=== PATIENT | male | born 1935 | race Caucasian/White ===

== ENCOUNTER → 2021-02-26 | Outpatient (CLI) | payer MEDICARE | END | disposition home or self-care (01) | LOC: CFH 13:42 | PROVIDERS: ATTEND Internal Medicine Cardiovascular Disease | DX: I08.3 Combined rheumatic disorders of mitral, aortic and tricuspid valves (principal); R07.9 Chest pain, unspecified; R06.02 Shortness of breath | CPT/HCPCS: 93306; 93356 ==

== ENCOUNTER 2021-03-14 14:09 | Observation (INO) | payer MEDICARE ==
[~2021-03-14] VITALS: Ht 177.8 cm; Wt 106.0 kg
[2021-03-14 15:03] LABS: BASOPHILS % (AUTO) 1 % (0-1); EOSINOPHILS % (AUTO) 16 % (1-7); LYMPHOCYTES % (AUTO) 22 % (22-44); MEAN CORPUSCULAR HEMOGLOBIN 31.7 pg (27.5-34.5); MEAN CORPUSCULAR HGB CONC 34.1 g/dL (33.2-36.2); MEAN PLATELET VOLUME 7.9 fL (7.4-10.4); MONOCYTES % (AUTO) 11 % (2-9); NEUTROPHILS % (AUTO) 50 % (42-75); PLATELET COUNT 282 x10^3/uL (130-400); RED BLOOD COUNT 4.44 x10^6/uL (4.38-5.82); RED CELL DISTRIBUTION WIDTH 15.3 % (9.4-14.8)
--- NOTE | 2021-03-14 15:04 | NUR ---
PIV PLACED, LABS DRAWN AND COLLECTED BY SCARIFIER OPERATOR. PT CONNECTED TO MONITORING. FALL PRECAUTIONS IN PLACE. CALL LIGHT IN REACH. AT BEDSIDE.
[2021-03-14 15:12] LABS: INTERNATIONAL NORMALIZED RATIO 1.93 (0.93-1.1)
[2021-03-14 15:14] LABS: ALANINE AMINOTRANSFERASE 18 U/L (12-78); ANION GAP 4 mmol/L (5-15); CALCIUM 9.1 mg/dL (8.5-10.1); CHLORIDE 105 mmol/L (98-107)
[2021-03-14 15:16] LABS: ALKALINE PHOSPHATASE 95 U/L (45-117); BILIRUBIN,TOTAL 0.6 mg/dL (0.2-1.0); TOTAL PROTEIN 7.6 g/dL (6.4-8.2)
[2021-03-14] MEDS ORDERED: ASPIRIN 81 MG TABLET CHEW PO ONE (15:30)
[2021-03-14 15:44] LABS: MICROSCOPIC NOT IND
[2021-03-14] MEDS ORDERED: ASPIRIN 81 MG TABLET CHEW ONE (15:53)
--- NOTE | 2021-03-14 16:16 | NUR ---
ART TO CONSULT NEURO
--- NOTE | 2021-03-14 16:30 | NUR ---
REPORT GIVEN TO SHARON SIBLEY. TRANSFER OF CARE.
--- NOTE | 2021-03-14 16:35 | NUR ---
RECEIVED REPORT FROM MARYJO LARA. PT RESTING ON MICKEYANAI. NADN. SHER.
--- NOTE | 2021-03-14 17:21 | NUR ---
TASK RN: REPORT TO MARYJO PARHAM ON FLOOR. PT PREPARED FOR TRANSPORT.
[2021-03-14] MEDS ORDERED: OXYcodone/APAP 5/325MG TABLET PO PRN (18:30)
[2021-03-14] MEDS ORDERED: ONDANSETRON 2MG/ML, 2ML IVPush PRN (18:30)
[2021-03-14] MEDS ORDERED: ACETAMINOPHEN 325 MG TABLET PO PRN (18:30)
[2021-03-14] MEDS ORDERED: WARFARIN 5 MG TABLET PO-COUM ONE (19:00)
[2021-03-14 19:49] VITALS: BP 125/71
[2021-03-14 20:00] VITALS: BP 124/74
[2021-03-14] MEDS: SODIUM CHLORIDE 0.9% 1,000 ML IV SCH (21:05)
[2021-03-14 22:00] VITALS: BP 98/52
[2021-03-14 22:10] VITALS: BP 151/76
[2021-03-15] VITALS: BP 103/67
[2021-03-15 02:00] VITALS: BP 97/59
[2021-03-15 04:00] VITALS: BP 128/50
[2021-03-15 06:00] VITALS: BP 134/75
[2021-03-15 06:00] LABS: BASOPHILS % (AUTO) 1 % (0-1); EOSINOPHILS % (AUTO) 18 % (1-7); LYMPHOCYTES % (AUTO) 37 % (22-44); MEAN CORPUSCULAR HGB CONC 34.4 g/dL (33.2-36.2); MEAN PLATELET VOLUME 7.9 fL (7.4-10.4); MONOCYTES % (AUTO) 11 % (2-9); NEUTROPHILS % (AUTO) 33 % (42-75); PLATELET COUNT 237 x10^3/uL (130-400); RED BLOOD COUNT 4.18 x10^6/uL (4.38-5.82); RED CELL DISTRIBUTION WIDTH 15.2 % (9.4-14.8)
[2021-03-15 06:07] LABS: INTERNATIONAL NORMALIZED RATIO 2.23 (0.93-1.1)
[2021-03-15 06:20] LABS: ANION GAP 3 mmol/L (5-15); CALCIUM 8.5 mg/dL (8.5-10.1); CHLORIDE 111 mmol/L (98-107); CHOLESTEROL, TOTAL 159 mg/dL (140-239); CREATININE 0.77 mg/dL (0.7-1.3); TRIGLYCERIDES 103 mg/dL (50-200); VLDL CHOLESTEROL 21 mg/dL (0-25)
[2021-03-15 06:25] LABS: MICROSCOPIC NOT IND
[2021-03-15 06:30] LABS: CHOL/HDL RATIO 4.4; HDL CHOL % 23 % (26-37); HDL CHOLESTEROL (DIRECT) 36 mg/dL (40-60); LDL CHOLESTEROL,CALCULATED 102 mg/dL (54-169); LDL/HDL RATIO 2.8 (0.5-3.0)
[2021-03-15 07:21] VITALS: BP 130/74
[2021-03-15] MEDS ORDERED: MECL-101 PO (08:47)
[2021-03-15] MEDS ORDERED: L.AC1CAP6 PO (08:47)
[2021-03-15] MEDS ORDERED: ASPI81TA45 PO (08:47)
[2021-03-15] MEDS ORDERED: WARF3TAB52 PO ×2 (08:47)
[2021-03-15] MEDS ORDERED: SOTA80TA19 PO (08:47)
[2021-03-15] MEDS ORDERED: TAMS-11 PO (08:47)
[2021-03-15] MEDS ORDERED: NITR0.4T28 SL (08:47)
[2021-03-15] MEDS ORDERED: OXYC5TAB98 PO (08:48)
[2021-03-15] MEDS ORDERED: PANT40TA6 PO (08:48)
[2021-03-15] MEDS ORDERED: MULT-658 PO (08:48)
[2021-03-15] MEDS ORDERED: METF500T17 PO (08:48)
[2021-03-15] MEDS ORDERED: SENNA/DOCUSATE TABLET PO SCH (09:00)
[2021-03-15] MEDS ORDERED: SOTALOL 80MG TABLET PO SCH (09:30)
[2021-03-15] MEDS ORDERED: OXYcodone IR 5MG TABLET PO PRN (09:30)
[2021-03-15] MEDS ORDERED: VIT1CAPS42 PO (10:58)
[2021-03-15] MEDS ORDERED: VALPROIC ACID 250 MG CAPSULE PO SCH (13:30)
[2021-03-15] MEDS ORDERED: VALP250C59 PO (14:15)
[2021-03-15 14:26] VITALS: BP 112/70
[2021-03-15] MEDS: SODIUM CHLORIDE 0.9% 1,000 ML IV SCH (14:30)
[2021-03-15] MEDS ORDERED: WARFARIN 3 MG TABLET PO-COUM ONE (18:00)
[2021-03-15] MEDS ORDERED: WARFARIN 1 MG TABLET PO-COUM ONE (18:00)
[2021-03-15] MEDS ORDERED: MECLIZINE 25 MG TABLET PO SCH (21:00)
[2021-03-16] MEDS ORDERED: PANTOPRAZOLE 40MG TABLET PO SCH (06:00)
== END 2021-03-15 16:32 | disposition home or self-care (01) ==
LOC: ED 16:57 → INTOOBSV 17:14 → EDIP 17:14 → 4EST 18:04
PROVIDERS: ADMIT Hospitalist; ATTEND Internal Medicine
DX: R47.1 Dysarthria and anarthria (principal); I65.29 Occlusion and stenosis of unspecified carotid artery; I10 Essential (primary) hypertension; E11.9 Type 2 diabetes mellitus without complications; I25.10 Atherosclerotic heart disease of native coronary artery without angina pectoris; I48.91 Unspecified atrial fibrillation; F43.9 Reaction to severe stress, unspecified; Z79.84 Long term (current) use of oral hypoglycemic drugs; Z79.82 Long term (current) use of aspirin; Z79.899 Other long term (current) drug therapy; Z95.0 Presence of cardiac pacemaker; Z79.01 Long term (current) use of anticoagulants; Z86.73 Personal history of transient ischemic attack (TIA), and cerebral infarction without residual deficits; Z88.0 Allergy status to penicillin
CPT/HCPCS: 36415; 70450; 70496; 70498; 80048; 80053; 80061; 81003; 83036; 84443; 85025; 85610; 93005; 95819; 96360; 96361; 97161; 97165; 99285; G0378; J7030

== ENCOUNTER 2021-04-26 12:54 | Emergency (ER) | payer MEDICARE ==
[~2021-04-26] VITALS: Ht 177.8 cm; Wt 95.0 kg
[~2021-04-26 12:54] MED LIST: ASPI81TA45 PO; L.AC1CAP6 PO; MECL-101 PO; METF500T17 PO; MULT-658 PO; NITR0.4T28 SL; OXYC5TAB98 PO; PANT40TA6 PO; SOTA80TA19 PO; TAMS-11 PO; VALP250C59 PO; VIT1CAPS42 PO; WARF3TAB52 PO
[2021-04-26 13:39] LABS: BASOPHILS % (AUTO) 1 % (0-1); EOSINOPHILS % (AUTO) 8 % (1-7); LYMPHOCYTES % (AUTO) 20 % (22-44); MEAN CORPUSCULAR HEMOGLOBIN 32.2 pg (27.5-34.5); MEAN PLATELET VOLUME 7.9 fL (7.4-10.4); MONOCYTES % (AUTO) 15 % (2-9); NEUTROPHILS % (AUTO) 58 % (42-75); PLATELET COUNT 202 x10^3/uL (130-400); RED BLOOD COUNT 4.41 x10^6/uL (4.38-5.82)
[2021-04-26 13:52] LABS: ALBUMIN 2.6 g/dL (3.4-5.0); ANION GAP 6 mmol/L (5-15); CALCIUM 8.7 mg/dL (8.5-10.1); CHLORIDE 107 mmol/L (98-107)
[2021-04-26 13:55] LABS: ALANINE AMINOTRANSFERASE 23 U/L (12-78); ALKALINE PHOSPHATASE 112 U/L (45-117); BILIRUBIN,TOTAL 0.7 mg/dL (0.2-1.0); CREATININE 0.88 mg/dL (0.7-1.3); TOTAL PROTEIN 7.7 g/dL (6.4-8.2)
--- NOTE | 2021-04-26 17:19 | NUR ---
pATIENT TO ROOM FROM LOBBY
[2021-04-26 18:30] VITALS: BP 107/51
== END 2021-04-26 18:59 | disposition home or self-care (01) ==
LOC: ED 18:50
DX: R56.9 Unspecified convulsions (principal); E11.9 Type 2 diabetes mellitus without complications; I25.10 Atherosclerotic heart disease of native coronary artery without angina pectoris; I10 Essential (primary) hypertension
CPT/HCPCS: 36415; 80053; 85025; 93005; 99284; 80203

== ENCOUNTER 2021-05-01 09:33 | Inpatient (IN) | payer MEDICARE ==
[~2021-05-01] VITALS: Ht 179.1 cm; Wt 100.6 kg
--- NOTE | 2021-05-01 13:20 | NUR ---
bleacher lard note: Pt to room from lobby.
[2021-05-01 13:38] LABS: BASOPHILS % (AUTO) 1 % (0-1); EOSINOPHILS % (AUTO) 9 % (1-7); LYMPHOCYTES % (AUTO) 33 % (22-44); MEAN CORPUSCULAR HEMOGLOBIN 31.9 pg (27.5-34.5); MEAN PLATELET VOLUME 8.1 fL (7.4-10.4); MONOCYTES % (AUTO) 18 % (2-9); NEUTROPHILS % (AUTO) 39 % (42-75); PLATELET COUNT 253 x10^3/uL (130-400); RED CELL DISTRIBUTION WIDTH 14.9 % (9.4-14.8)
[2021-05-01] MEDS ORDERED: OMNIPAQUE 350 MG/ML, 100ML BOTTLE ONE (13:50)
[2021-05-01 13:54] LABS: ALANINE AMINOTRANSFERASE 22 U/L (12-78); ALBUMIN 2.6 g/dL (3.4-5.0); ANION GAP 7 mmol/L (5-15); CALCIUM 8.7 mg/dL (8.5-10.1); CHLORIDE 104 mmol/L (98-107); CREATININE 0.85 mg/dL (0.7-1.3)
[2021-05-01 13:56] LABS: ALKALINE PHOSPHATASE 109 U/L (45-117); BILIRUBIN,TOTAL 0.5 mg/dL (0.2-1.0); TOTAL PROTEIN 7.6 g/dL (6.4-8.2)
[2021-05-01] MEDS ORDERED: SODIUM CHLORIDE FLUSH 10ML SYR IVF ONE ×2 (14:00→15:30)
[2021-05-01] MEDS ORDERED: PANTOPRAZOLE 40 MG IV IVPush ONE (14:00)
[2021-05-01] MEDS ORDERED: PANTOPRAZOLE 40 MG IV ONE (14:05)
--- NOTE | 2021-05-01 14:20 | NUR ---
1420: Pt return from CT
[2021-05-01 14:40] LABS: INTERNATIONAL NORMALIZED RATIO 2.41 (0.93-1.1); PROTHROMBIN TIME 24.7 Seconds (9.6-11.5)
[2021-05-01] MEDS ORDERED: L.AC1CAP6 PO (15:24)
[2021-05-01] MEDS ORDERED: PROP15DR OP (15:24)
[2021-05-01] MEDS ORDERED: ATOR10TA9 PO (15:24)
[2021-05-01] MEDS ORDERED: SOTA80TA PO (15:24)
[2021-05-01] MEDS ORDERED: ASPI-963 PO (15:24)
[2021-05-01] MEDS ORDERED: METF500T17 PO (15:24)
[2021-05-01] MEDS ORDERED: HYDR28CR TP (15:24)
[2021-05-01] MEDS ORDERED: WARF-36 PO (15:24)
[2021-05-01] MEDS ORDERED: DICL20GE TD (15:24)
[2021-05-01] MEDS ORDERED: VIT1CAPS42 PO (15:24)
[2021-05-01] MEDS ORDERED: PHYTONADIONE 10 MG/ML, 1ML SQ ONE (15:30)
[2021-05-01] MEDS ORDERED: SODIUM CHLORIDE 0.9% 1,000ML IVBOLUS ONE (15:30)
[2021-05-01] MEDS ORDERED: PHYTONADIONE 10 MG/ML, 1ML ONE (16:00)
[2021-05-01] MEDS ORDERED: OXYcodone/APAP 5/325MG TABLET ONE ×2 (16:02→20:47)
[2021-05-01] MEDS ORDERED: OXYcodone/APAP 5/325MG TABLET PO ONE (16:30)
[2021-05-01] MEDS ORDERED: GOLYTELY 4,000ML ORAL.SOL PO ONE (17:00)
[2021-05-01 17:24] VITALS: BP 107/44
[2021-05-01 17:44] VITALS: BP 103/44
[2021-05-01 17:51] VITALS: BP 102/35
--- NOTE | 2021-05-01 18:19 | NUR ---
PRECEPTOR RN: HOSPITALIST AT BEDSIDE.
[2021-05-01 18:30] VITALS: BP 130/58
--- NOTE | 2021-05-01 18:39 | NUR ---
PT AMBULATED TO RESTROOM ON STEADY GAIT.
[2021-05-01] MEDS ORDERED: ACETAMINOPHEN 325 MG TABLET PO PRN (19:00)
[2021-05-01] MEDS ORDERED: ONDANSETRON 2MG/ML, 2ML IVPush PRN (19:00)
[2021-05-01] MEDS ORDERED: MECLIZINE 25 MG TABLET PO PRN (19:00)
[2021-05-01] MEDS ORDERED: ONDANSETRON ODT 4 MG PO PRN (19:00)
--- NOTE | 2021-05-01 19:03 | NUR ---
ED nursing hand-off report given to MARYJO Nino; questions answered
--- NOTE | 2021-05-01 20:14 | NUR ---
REPORT GIVEN TO MARYJO EWING
[2021-05-01] MEDS ORDERED: ATORVASTATIN 40 MG TABLET ONE (20:47)
[2021-05-01] MEDS: OXYcodone IR 5MG TABLET PO SCH (20:57)
[2021-05-01] MEDS: LACTATED RINGERS 1,000 ML IV SCH (20:57)
[2021-05-01] MEDS: SOTALOL 80MG TABLET PO SCH (20:57)
[2021-05-01] MEDS: ATORVASTATIN 10 MG TABLET PO SCH (20:57)
[2021-05-01] MEDS: VALPROIC ACID 250 MG CAPSULE PO SCH (20:57)
--- NOTE | 2021-05-01 23:28 | NUR ---
CLEANSED PT OF LOOSE BM. NO BLOOD NOTED IN BM. SHEETS AND DIAPER PLACED ON PT.
--- NOTE | 2021-05-02 00:21 | NUR ---
ASSISTED PT BACK FROM THE RESTROOM TO BED. PT SITTING ON SIDE OF THE BED.
[2021-05-02 01:27] LABS: MICROSCOPIC NOT IND
--- NOTE | 2021-05-02 04:00 | NUR ---
PT HAS NOT PASSED ANY BLOOD IN STOOL SINCE BEGINNING GOLYTLY. PT REPORTS STOOLS ARE BECOMING MORE CLEAR.
--- NOTE | 2021-05-02 06:04 | NUR ---
ASSISTED PT TO RESTROOM AND BACK. NADN. TOLERATED WELL. NO BLOOD NOTED IN STOOL.
--- NOTE | 2021-05-02 06:36 | NUR ---
LAB AT BEDSIDE.
[2021-05-02 06:49] LABS: MEAN CORPUSCULAR HEMOGLOBIN 31.8 pg (27.5-34.5); MEAN PLATELET VOLUME 7.8 fL (7.4-10.4); PLATELET COUNT 213 x10^3/uL (130-400); RED BLOOD COUNT 4.01 x10^6/uL (4.38-5.82)
--- NOTE | 2021-05-02 06:49 | NUR ---
CARE TRANSFERED AND REPORT GIVEN TO MARYJO JUAREZ
[2021-05-02 07:02] LABS: ALANINE AMINOTRANSFERASE 20 U/L (12-78); ALBUMIN 2.4 g/dL (3.4-5.0); ANION GAP 8 mmol/L (5-15); CALCIUM 8.2 mg/dL (8.5-10.1); CHLORIDE 105 mmol/L (98-107); CREATININE 0.81 mg/dL (0.7-1.3)
[2021-05-02 07:10] LABS: <PLATELET ESTIMATE> ADEQUATE; <PLT MORPHOLOGY> NORMAL PLT MORPH; <RBC MORPHOLOGY> NORMAL; BAND#(MANUAL) 0.15 x10^3/uL; BANDS%(MANUAL) 3 % (0-7); EOS% (MANUAL) 6 % (1-7); LYMPHS% (MANUAL) 26 % (22-44); MONOS#(MANUAL) 0.85 x10^3/uL (0.3-2.7); MONOS% (MANUAL) 17 % (2-9); SEGS% (MANUAL) 48 % (42-75)
[2021-05-02 07:12] LABS: ALKALINE PHOSPHATASE 92 U/L (45-117); BILIRUBIN,TOTAL 0.6 mg/dL (0.2-1.0); TOTAL PROTEIN 6.7 g/dL (6.4-8.2)
--- NOTE | 2021-05-02 07:14 | NUR ---
PT RESTING IN BED WITH EYES CLOSED. NO STATED NEEDS AT THIS TIME. WILL CONTINUE TO MONITOR.
[2021-05-02] MEDS ORDERED: POTASSIUM CHLORIDE 40 MEQ in SODIUM CHLORIDE 0.9% 500 ML IV ONE (08:00)
--- NOTE | 2021-05-02 08:21 | NUR ---
PT STILL DRINKING GOLYTLY SOLUTION. PT ABLE TO GET UP TO THE BATHROOM ON OWN. WILL CONTINUE TO MONITOR.
[2021-05-02] MEDS ORDERED: PANTOPRAZOLE 40 MG IV ONE (08:36)
[2021-05-02] MEDS ORDERED: OXYcodone IR 5MG TABLET ONE ×2 (08:42→18:50)
[2021-05-02] MEDS: PANTOPRAZOLE 40 MG IV IVPush SCH (08:48)
[2021-05-02] MEDS: OXYcodone IR 5MG TABLET PO SCH ×3 (08:50→22:19)
[2021-05-02] MEDS: VALPROIC ACID 250 MG CAPSULE PO SCH ×2 (08:51→22:18)
[2021-05-02] MEDS: SOTALOL 80MG TABLET PO SCH ×2 (08:51→22:20)
[2021-05-02] MEDS: LACTOBACILLUS CHEW TABLET PO SCH (08:51)
--- NOTE | 2021-05-02 09:48 | NUR ---
PT LEFT FA IV INFULTRATED. IV REMOVED. 2 NEW IVs PLACED AFTER MULTIPLE ATTEMPTS. ORDERED POTASSIUM INFUSING PER PUMP. PT GIVEN MEAL TRAY. CALL LIGHT WITHIN REACH.
--- NOTE | 2021-05-02 10:10 | NUR ---
PT ON RECREATION ADVISER. PT AWARE TO KEEP THIS ON FOR MONITORING DURING POTASSIUM ADMIN. PT AGREED. PT UNHAPPY WITH CLEAR LIQUID MEAL TRAY. PER GI DOC THAT ROUNDERED EARLIER, PT WILL NOT GO FOR COLONOSCOPY TODAY BUT MAYBE TOMORROW. PT CONTINUING TO JOHNATHON LIANG
[2021-05-02 10:32] LABS: INTERNATIONAL NORMALIZED RATIO 2.17 (0.93-1.1); PROTHROMBIN TIME 22.4 Seconds (9.6-11.5)
[2021-05-02] MEDS: PLEASE ENTER HEIGHT AND WEIGHT MC SCH ×2 (10:45→14:21)
[2021-05-02] MEDS: LACTATED RINGERS 1,000 ML IV SCH (10:45)
[2021-05-02] MEDS: PRESERVISION AREDS HOMEMEDPO SCH (10:46)
--- NOTE | 2021-05-02 12:55 | NUR ---
PT GIVEN FOOD TRAY. PT REMINDED TO KEEP DRINKING GOLYTYL
--- NOTE | 2021-05-02 13:47 | NUR ---
CONTINUING TO REMIND PT TO DRINK GOLYTLY, GAVE PT ICE TO IMPROVE TASTE OF IT PER PT REQUEST. PT GIVEN SOCKS AND FRESH UNDERWEAR. PT HAS MEAL TRAY. WILL CONTINUE TO MONITOR.
--- NOTE | 2021-05-02 14:49 | NUR ---
PT AMBULATING TO BATHROOM STEADILY WITH IV POLE. PT HAVING MULITPLE BMs THROUGHOUT THE DAY. PT STATED THERE HASN'T BEEN ANY BLOOD IN BMs
--- NOTE | 2021-05-02 17:51 | NUR ---
CONTINUING TO REMIND PT TO DRINK GOLYGHTLY. PT GIVEN BEDSIDE COMMODE INCASE OF SUDDEN STOOLING. PT INFORMED HIS WAS CALLED AND UPDATED BY CHARLEY RN. WILL CONTINUE TO MONITOR. MEAL TRAY ORDERED FOR PT.
--- NOTE | 2021-05-02 18:40 | NUR ---
REPORT TO CHELLE SIBLEY
--- NOTE | 2021-05-02 18:49 | NUR ---
RECIEVED REPORT FROM SAMIRA
[2021-05-02 19:47] VITALS: BP 122/76
[2021-05-02] MEDS: ATORVASTATIN 10 MG TABLET PO SCH (22:19)
[2021-05-03] MEDS: PLEASE ENTER HEIGHT AND WEIGHT MC SCH
[2021-05-03 00:12] VITALS: BP 105/65
[2021-05-03 00:38] VITALS: BP 122/76
[2021-05-03 05:14] VITALS: BP 165/79
[2021-05-03 05:47] LABS: BASOPHILS % (AUTO) 0 % (0-1); EOSINOPHILS % (AUTO) 6 % (1-7); LYMPHOCYTES % (AUTO) 39 % (22-44); MEAN CORPUSCULAR HEMOGLOBIN 31.7 pg (27.5-34.5); MEAN CORPUSCULAR HGB CONC 33.9 g/dL (33.2-36.2); MEAN PLATELET VOLUME 7.8 fL (7.4-10.4); MONOCYTES % (AUTO) 13 % (2-9); NEUTROPHILS % (AUTO) 43 % (42-75); PLATELET COUNT 242 x10^3/uL (130-400); RED CELL DISTRIBUTION WIDTH 14.7 % (9.4-14.8)
[2021-05-03 05:53] LABS: INTERNATIONAL NORMALIZED RATIO 1.55 (0.93-1.1); PROTHROMBIN TIME 16.2 Seconds (9.6-11.5)
[2021-05-03 05:59] VITALS: BP 114/73
[2021-05-03 06:01] LABS: ANION GAP 8 mmol/L (5-15); CALCIUM 8.6 mg/dL (8.5-10.1); CHLORIDE 105 mmol/L (98-107)
[2021-05-03] MEDS: LACTOBACILLUS CHEW TABLET PO SCH (08:13)
[2021-05-03] MEDS: PANTOPRAZOLE 40 MG IV IVPush SCH (08:14)
[2021-05-03] MEDS: OXYcodone IR 5MG TABLET PO SCH ×2 (08:14→17:14)
[2021-05-03] MEDS: PRESERVISION AREDS HOMEMEDPO SCH (08:14)
[2021-05-03] MEDS: VALPROIC ACID 250 MG CAPSULE PO SCH (08:14)
[2021-05-03] MEDS: SOTALOL 80MG TABLET PO SCH (08:14)
[2021-05-03] MEDS ORDERED: POTASSIUM CHLORIDE 40 MEQ in SODIUM CHLORIDE 0.9% 500 ML IV ONE (09:30)
[2021-05-03] MEDS ORDERED: MAGNESIUM SULFATE PMX 2GM/50ML 50 ML IV ONE (09:30)
[2021-05-03 12:00] VITALS: BP 116/67
[2021-05-03] MEDS ORDERED: PANT40TA3 PO (17:00)
[2021-05-03] MEDS ORDERED: METF500T17 PO (17:00)
[2021-05-03] MEDS ORDERED: ASPI-963 PO (17:00)
[2021-05-03] MEDS ORDERED: WARF3TAB52 PO (17:00)
[2021-05-03] MEDS: LACTATED RINGERS 1,000 ML IV SCH (17:00)
== END 2021-05-03 19:21 | disposition home health service (06) | DRG 378 ==
LOC: ED 09:52 → EDIP 15:57 → 4WST 05-02 19:09
PROVIDERS: ADMIT Internal Medicine; ATTEND Internal Medicine
PROC: 30233K1 Transfusion of Nonautologous Frozen Plasma into Peripheral Vein, Percutaneous Approach (ICD-10-PCS; principal; 2021-05-01)
DX: K57.31 Diverticulosis of large intestine without perforation or abscess with bleeding (principal); D68.69 Other thrombophilia; K64.8 Other hemorrhoids; I48.0 Paroxysmal atrial fibrillation; E11.9 Type 2 diabetes mellitus without complications; E78.5 Hyperlipidemia, unspecified; E87.6 Hypokalemia; K21.9 Gastro-esophageal reflux disease without esophagitis; G40.909 Epilepsy, unspecified, not intractable, without status epilepticus; G89.29 Other chronic pain; I10 Essential (primary) hypertension; I25.10 Atherosclerotic heart disease of native coronary artery without angina pectoris; N40.0 Benign prostatic hyperplasia without lower urinary tract symptoms; T45.515A Adverse effect of anticoagulants, initial encounter; Z79.01 Long term (current) use of anticoagulants; Z79.82 Long term (current) use of aspirin; Z80.0 Family history of malignant neoplasm of digestive organs; Z82.0 Family history of epilepsy and other diseases of the nervous system; Z83.3 Family history of diabetes mellitus; Z83.71 Family history of colonic polyps; Z86.73 Personal history of transient ischemic attack (TIA), and cerebral infarction without residual deficits; Z87.19 Personal history of other diseases of the digestive system; Z85.828 Personal history of other malignant neoplasm of skin; Z88.0 Allergy status to penicillin; Y92.89 Other specified places as the place of occurrence of the external cause
CPT/HCPCS: 36415; 74177; 80048; 80053; 80164; 81003; 83735; 84100; 84443; 85014; 85018; 85025; 85610; 86850; 86900; 93005; 99285; G0378; J3430; J3480; Q9967; C9113; J3475; J7030; J7040; J7120; P9017

== ENCOUNTER 2021-05-08 20:49 | Inpatient (IN) | payer MEDICARE ==
[~2021-05-08] VITALS: Ht 179.1 cm; Wt 94.8 kg
[~2021-05-08 20:49] MED LIST changes: +ASPI-963 PO; +ATOR10TA9 PO; +DICL20GE TD; +HYDR28CR TP; +PANT40TA3 PO; +PROP15DR OP; +SOTA80TA PO; +WARF-36 PO
--- NOTE | 2021-05-08 21:45 | NUR ---
FIRST CONTACT WITH PT. PT SITTING UP IN GURNEY, AWAKE/ALERT. NAD NOTED. PT REPORTS BLOOD WITH BM YESTERDAY WHICH PROGRESSED TO DARK BLOOD IN TOILET BOWL TODAY. HX LOWER GI BLEED WO TRANSFUSION; ON WARFARIN AND ASA FOR AFIB. DENIES CP/DIZZINESS. PT REPORTS FATIGUE AND EXERTIONAL DYSPNEA WORSE THAN BASELINE X TWO DAYS. BP/SPO2/ECG MONITORING IN PLACE. AFIB ON MONITOR. HR 70-80. SBP 115-120. PT PWD.
[2021-05-08 21:46] LABS: BASOPHILS % (AUTO) 1 % (0-1); EOSINOPHILS % (AUTO) 5 % (1-7); LYMPHOCYTES % (AUTO) 38 % (22-44); MEAN CORPUSCULAR HEMOGLOBIN 31.6 pg (27.5-34.5); MEAN CORPUSCULAR HGB CONC 33.8 g/dL (33.2-36.2); MEAN PLATELET VOLUME 7.5 fL (7.4-10.4); MONOCYTES % (AUTO) 18 % (2-9); NEUTROPHILS % (AUTO) 38 % (42-75); PLATELET COUNT 246 x10^3/uL (130-400); RED CELL DISTRIBUTION WIDTH 14.7 % (9.4-14.8)
[2021-05-08 21:54] LABS: ALANINE AMINOTRANSFERASE 19 U/L (12-78); ALBUMIN 2.1 g/dL (3.4-5.0); ANION GAP 5 mmol/L (5-15); CALCIUM 8.3 mg/dL (8.5-10.1); CHLORIDE 107 mmol/L (98-107); CREATININE 0.71 mg/dL (0.7-1.3)
[2021-05-08 21:57] LABS: ALKALINE PHOSPHATASE 71 U/L (45-117); BILIRUBIN,TOTAL 0.6 mg/dL (0.2-1.0); TOTAL PROTEIN 6.5 g/dL (6.4-8.2)
[2021-05-08 21:59] LABS: INTERNATIONAL NORMALIZED RATIO 1.19 (0.93-1.1); PROTHROMBIN TIME 12.6 Seconds (9.6-11.5)
--- NOTE | 2021-05-08 22:00 | NUR ---
US PIV ESTABLISHED. LABS DRAWN. PT POSITIONED FOR COMFORT.
[2021-05-08] MEDS ORDERED: PANT20TA2 PO (23:21)
[2021-05-08] MEDS ORDERED: DIVA125T2 PO (23:21)
[2021-05-08] MEDS ORDERED: SOTA80TA PO (23:21)
[2021-05-09] MEDS ORDERED: NITROGLYCERIN SINGLE TAB 0.4 MG SL PRN
[2021-05-09] MEDS ORDERED: MELATONIN 5 MG TABLET PO PRN (00:30)
[2021-05-09] MEDS ORDERED: TRAZODONE 50MG TABLET PO PRN (00:30)
[2021-05-09] MEDS ORDERED: ACETAMINOPHEN 325 MG TABLET PO PRN (00:30)
--- NOTE | 2021-05-09 00:48 | NUR ---
REPORT CALLED TO FLOOR. PT PREPARED FOR TRANSPORT
--- NOTE | 2021-05-09 00:50 | NUR ---
ADMIT FLOOR ORDER CHANGED. THROUGHPUT UPDATED. AWAITING BED ASSIGNMENT
--- NOTE | 2021-05-09 01:38 | NUR ---
REPORT TO MARYJO PALMER
[2021-05-09] MEDS: OXYcodone IR 5MG TABLET PO PRN (02:29)
[2021-05-09] MEDS: INSULIN LISPRO 100 UNITS/ML, PEN SQ-INSULIN SCH ×4 (07:00→20:13)
[2021-05-09 09:55] VITALS: BP 115/68
[2021-05-09] MEDS: DIVALPROEX 125 MG TABLET.DR PO SCH ×3 (10:24→20:15)
[2021-05-09] MEDS: SOTALOL 80MG TABLET PO SCH ×3 (10:24→20:14)
[2021-05-09] MEDS: PANTOPRAZOLE 40MG TABLET PO SCH (10:24)
[2021-05-09 14:09] VITALS: BP 107/68
[2021-05-09 19:30] VITALS: BP 111/68
[2021-05-09] MEDS: ATORVASTATIN 40 MG TABLET PO SCH (20:15)
[2021-05-10] MEDS: OXYcodone IR 5MG TABLET PO PRN ×3 (00:42→21:24)
[2021-05-10 01:42] VITALS: BP 98/63
[2021-05-10 02:32] LABS: ANION GAP 4 mmol/L (5-15); CHLORIDE 109 mmol/L (98-107); CREATININE 0.62 mg/dL (0.7-1.3)
[2021-05-10] MEDS: INSULIN LISPRO 100 UNITS/ML, PEN SQ-INSULIN SCH ×4 (07:00→21:00)
[2021-05-10 09:04] VITALS: BP 102/67
[2021-05-10] MEDS: DIVALPROEX 125 MG TABLET.DR PO SCH ×2 (10:36→21:24)
[2021-05-10] MEDS: PANTOPRAZOLE 40MG TABLET PO SCH (10:37)
[2021-05-10] MEDS: SOTALOL 80MG TABLET PO SCH ×2 (10:37→21:24)
[2021-05-10 14:33] VITALS: BP 120/74
[2021-05-10] MEDS: ATORVASTATIN 40 MG TABLET PO SCH (21:24)
[2021-05-10 21:58] VITALS: BP 123/57
[2021-05-11 01:58] VITALS: BP 97/60
[2021-05-11 03:16] LABS: ANION GAP 3 mmol/L (5-15); CHLORIDE 108 mmol/L (98-107); CREATININE 0.77 mg/dL (0.7-1.3)
[2021-05-11] MEDS: INSULIN LISPRO 100 UNITS/ML, PEN SQ-INSULIN SCH ×2 (07:00→11:00)
[2021-05-11 08:00] VITALS: BP 111/69
[2021-05-11 08:28] LABS: BASOPHILS % (AUTO) 1 % (0-1); EOSINOPHILS % (AUTO) 7 % (1-7); LYMPHOCYTES % (AUTO) 34 % (22-44); MEAN CORPUSCULAR HEMOGLOBIN 31.5 pg (27.5-34.5); MEAN CORPUSCULAR HGB CONC 33.7 g/dL (33.2-36.2); MEAN PLATELET VOLUME 7.7 fL (7.4-10.4); MONOCYTES % (AUTO) 21 % (2-9); NEUTROPHILS % (AUTO) 37 % (42-75); PLATELET COUNT 259 x10^3/uL (130-400); RED BLOOD COUNT 3.85 x10^6/uL (4.38-5.82); RED CELL DISTRIBUTION WIDTH 15.3 % (9.4-14.8)
[2021-05-11] MEDS: OXYcodone IR 5MG TABLET PO PRN (09:35)
[2021-05-11] MEDS: PANTOPRAZOLE 40MG TABLET PO SCH (09:36)
[2021-05-11] MEDS: SOTALOL 80MG TABLET PO SCH (09:36)
[2021-05-11] MEDS: DIVALPROEX 125 MG TABLET.DR PO SCH (09:36)
== END 2021-05-11 16:12 | disposition home or self-care (01) | DRG 378 ==
LOC: SUATTDRO 22:59 → ED 23:52 → EDIP 23:53 → 4EST 05-09 01:58
PROVIDERS: ADMIT Internal Medicine; ATTEND Internal Medicine
DX: K57.31 Diverticulosis of large intestine without perforation or abscess with bleeding (principal); D62 Acute posthemorrhagic anemia; D68.69 Other thrombophilia; F11.20 Opioid dependence, uncomplicated; R47.01 Aphasia; E44.1 Mild protein-calorie malnutrition; K64.4 Residual hemorrhoidal skin tags; E11.9 Type 2 diabetes mellitus without complications; E78.5 Hyperlipidemia, unspecified; G40.909 Epilepsy, unspecified, not intractable, without status epilepticus; G89.29 Other chronic pain; I10 Essential (primary) hypertension; I25.10 Atherosclerotic heart disease of native coronary artery without angina pectoris; I48.0 Paroxysmal atrial fibrillation; I99.8 Other disorder of circulatory system; K21.9 Gastro-esophageal reflux disease without esophagitis; N40.1 Benign prostatic hyperplasia with lower urinary tract symptoms; Z79.01 Long term (current) use of anticoagulants; Z85.828 Personal history of other malignant neoplasm of skin; Z86.73 Personal history of transient ischemic attack (TIA), and cerebral infarction without residual deficits; Z87.19 Personal history of other diseases of the digestive system; Z95.0 Presence of cardiac pacemaker; Z88.0 Allergy status to penicillin; Z88.8 Allergy status to other drugs, medicaments and biological substances; Z68.29 Body mass index [BMI] 29.0-29.9, adult
CPT/HCPCS: 36415; 71045; 80048; 80053; 82962; 83690; 83735; 84100; 85018; 85025; 85610; 86850; 86900; 99285; G0378